=== PATIENT | male | born 1965 | race Caucasian/White ===

== ENCOUNTER → 2019-01-14 | Outpatient (CLI) | payer BC ==
[~2019-01-14] MED LIST: VICODIN 500 MG-1 TAB PO
[2019-01-14 07:28] LABS: BASO # 0.1 10*3/uL (0.0-0.1); BASO % 1.5 % (0.0-1.0); EOS # 0.2 10*3/uL (0.0-0.4); HEMATOCRIT 45.1 % (42.0-52.0); HEMOGLOBIN 14.8 g/dl (14.0-18.0); LYMPH # 1.9 10*3/uL (1.3-4.4); LYMPH % 34.1 % (27.0-41.0); MEAN CELL VOLUME 89.5 fl (80.0-94.0); MEAN CORPUSCULAR HGB 29.4 pg (27.0-31.0); MEAN CORPUSCULAR HGB CONC 32.8 g/dl (33.0-37.0); MEAN PLATELET VOLUME 10.3 fl (9.6-12.3); MONO # 0.5 10*3/uL (0.1-1.0); MONO % 9.8 % (3.0-9.0); NEUT # 2.8 10*3/uL (2.3-7.9); NEUT % 50.4 % (47.0-73.0); PLATELET COUNT AUTOMATED 298 10*3/uL (130-400); RED BLOOD COUNT 5.04 10*6/uL (4.50-5.90); RED CELL DISTRI WIDTH 13.2 % (0-14.5); WHITE BLOOD COUNT 5.5 10*3/uL (4.8-10.8)
[2019-01-14 07:57] LABS: ALBUMIN 3.6 gm/dl (3.1-4.5); BUN 13 mg/dl (7-24); CHLORIDE 103 mmol/L (98-107); CHOLESTEROL 250 mg/dL (<200); CREATININE 0.66 mg/dL (0.70-1.30); POTASSIUM 4.2 mmol/L (3.5-5.1); SGOT/AST 20 IU/L (3-35); SGPT/ALT 35 U/L (12-78); SODIUM 139 mmol/L (136-145); TRIGLYCERIDES 125 mg/dl (<150); VLDL CHOLESTEROL 25 mg/dL (6-40)
[2019-01-14 08:04] LABS: ALKALINE PHOSPHATASE 78 U/L (45-117); CPK 84 U/L (39-308); HDL CHOLESTEROL 44 mg/dl (40-60); LDL CHOLESTEROL 181 mg/dL (9-159); TOTAL PROTEIN 7.3 gm/dL (6.4-8.2)
[2019-01-14 08:14] LABS: VITAMIN D, 25-HYDROXY 24.1 ng/mL (30-100)
== END | disposition home or self-care (01) ==
LOC: LAB 06:49
PROVIDERS: Internal Medicine
DX: Z13.1 Encounter for screening for diabetes mellitus (principal); Z13.21 Encounter for screening for nutritional disorder; Z13.220 Encounter for screening for lipoid disorders; Z12.5 Encounter for screening for malignant neoplasm of prostate; D52.9 Folate deficiency anemia, unspecified; R74.8 Abnormal levels of other serum enzymes; R70.0 Elevated erythrocyte sedimentation rate; E11.9 Type 2 diabetes mellitus without complications; E55.9 Vitamin D deficiency, unspecified; I10 Essential (primary) hypertension

== ENCOUNTER 2020-02-16 15:58 | Observation (INO) | payer BC ==
[~2020-02-16] VITALS: Ht 182.9 cm; Wt 119.1 kg
[2020-02-16 16:11] VITALS: BP 150/80
[2020-02-16 16:33] LABS: BASO # 0.1 10*3/uL (0.0-0.1); BASO % 0.9 % (0.0-1.0); EOS # 0.2 10*3/uL (0.0-0.4); EOS % 2.8 % (1.0-4.0); HEMATOCRIT 44.4 % (42.0-52.0); LYMPH # 1.9 10*3/uL (1.3-4.4); LYMPH % 24.8 % (27.0-41.0); MEAN CELL VOLUME 87.9 fl (80.0-94.0); MEAN CORPUSCULAR HGB 28.7 pg (27.0-31.0); MEAN CORPUSCULAR HGB CONC 32.7 g/dl (33.0-37.0); MEAN PLATELET VOLUME 10.3 fl (9.6-12.3); MONO # 0.6 10*3/uL (0.1-1.0); MONO % 7.6 % (3.0-9.0); NEUT # 4.9 10*3/uL (2.3-7.9); NEUT % 63.6 % (47.0-73.0); PLATELET COUNT AUTOMATED 285 10*3/uL (130-400); RED BLOOD COUNT 5.05 10*6/uL (4.50-5.90); RED CELL DISTRI WIDTH 13.2 % (0-14.5); WHITE BLOOD COUNT 7.8 10*3/uL (4.8-10.8)
[2020-02-16 16:44] LABS: ACT PARTIAL THROMBO TIME 28.1 SECONDS (20.0-32.1)
[2020-02-16 16:49] LABS: ALBUMIN 3.7 gm/dl (3.1-4.5); ALKALINE PHOSPHATASE 86 U/L (45-117); BUN 13 mg/dl (7-24); CHLORIDE 104 mmol/L (98-107); CREATININE 0.66 mg/dL (0.70-1.30); POTASSIUM 3.6 mmol/L (3.5-5.1); SGOT/AST 24 IU/L (3-35); SGPT/ALT 41 U/L (12-78); SODIUM 138 mmol/L (136-145); TOTAL PROTEIN 7.5 gm/dL (6.4-8.2)
[2020-02-16 16:51] LABS: TROPONIN I < 0.015 ng/ml (<0.045)
[2020-02-16 19:20] VITALS: BP 133/71
--- NOTE | 2020-02-16 19:20 | NUR ---
CALLED FLOOR, NURSE IN REPORT. ASKED FILE SYSTEM INSTALLER FOR NURSE TO CALL ED WHEN READY FOR ADMISSION.
[2020-02-16 19:50] VITALS: BP 118/53
--- NOTE | 2020-02-16 20:02 | NUR ---
CALLED FLOOR TO SEE IF READY FOR ADMISSION. [employer] SPECIALIST TO TELL NURSE.
[2020-02-16 20:20] VITALS: BP 109/63
[2020-02-16 20:30] VITALS: BP 150/80
--- NOTE | 2020-02-16 20:30 | NUR ---
A 54, admitted to [facility], under the services of Dr. SABRINA SNIDER,IRENE Deluca with a diagnosis of chest pain. Chief complaint is C/O CHEST TIGHTNESS, SOB SINCE YESTERDAY RADIATES TO BACK AND SHOULDER BLADES, DIZZINESS. SAW TODAY AND WAS SENT HERE. HX OF PERICARDITIS. Patient arrived via stretcher from ER. Monitor applied. Initial assessment completed. Vital signs taken and recorded. DR. SABRINA SNIDER,IRENE Deluca notified of admission to the [facility] unit. Orders received. See assessment for past medical history, medications and allergies. Patient and/or family oriented to unit. [facility] visitation policy reviewed. Clothing/patient valuable form completed. SOHAN JARRETT
[2020-02-16 20:36] VITALS: BP 150/80
[2020-02-16] MEDS ORDERED: TENORMIN50 MG PO (20:41)
[2020-02-16] MEDS ORDERED: NEURONTIN100 MG PO (20:42)
[2020-02-16] MEDS ORDERED: ASPIRIN ADULT L81 M1 PO (20:42)
[2020-02-17] VITALS: BP 140/88
[2020-02-17 08:00] VITALS: BP 119/64
--- NOTE | 2020-02-17 08:40 | NUR ---
PT TO CARDIAC REHAB VIA WC
--- NOTE | 2020-02-17 09:00 | NUR ---
Fashion Marketer in to talk to patient. Patient states lives at home with his . There are 24 steps in the home. Physician: Dr. Chele Joshi Pharmacy: [facility] Home health services: none Patient's level of ADLs: INDEPENDENT Patient has working utilities: yes DME: none Follow-up physician's appointment after d/c: he prefers to make his own follow up appt after discharge Does patient want to access PORTAL?: no Discharge plan discussed with patient. He lives at home with his . He is independent in his ADLs and ambulation. Discussed home health care services and he denies any home needs. CM will continue to follow for any discharge planning needs. When medically stable he will be discharged to home. He states his will provide transportation on discharge. MARY ARCE
--- NOTE | 2020-02-17 09:40 | NUR ---
INFORMED CONSENT OBTAINED FOR LEXISCAN NUCLEAR STRESS TEST WITH DR. BENNETT. RESTING EKG NSR WITH A RESTING HR OF 67 WITH BP OF 128/68. LUNGS CLEAR WITH SPO2 OF 97% ON ROOM AIR. PT COMPLETED A 1:00 LEXISCAN PROTOCOL RECEIVING LEXISCAN 0.4 MG IV OVER 10 SECONDS. HAD NO CHEST PAIN OR ANY EKG CHANGES. HAD C/O FEELING "WARM AND STOMACH CRAMPING" THAT WAS RELIEVED IN RECOVERY. HAD A PEAK HR OF 99 WITH BP OF 140/70. LAST RECOVERY HR OF 87 WITH BP OF 136/74. AWAITING SCANNING IN STABLE CONDITION.
[2020-02-17 12:00] VITALS: BP 129/59
--- NOTE | 2020-02-17 13:30 | NUR ---
Received call from Dr. Joshi. Patient can be discharged to home. Dr. Joshi states that discharge has been completed, stress and echo are good. Nurse notified.
--- NOTE | 2020-02-17 14:30 | NUR ---
Informed patient his follow up doctor appt is Friday, 02/22 at 1045. Patient verbalized an understanding. he states he will drive himself home as he drove himself here.
--- NOTE | 2020-02-17 14:59 | NUR ---
Discharge instructions reviewed with patient/family. Patient receptive and verbalizes understanding. Follow-up care arranged. Written instructions given to patient/family. ENRIQUE ELLIS
== END 2020-02-17 17:20 | disposition home or self-care (01) ==
LOC: ED 15:58 → EDHOLD 18:50 → 4NE 18:50
PROVIDERS: Emergency Medicine; ADMIT Internal Medicine; ATTEND Internal Medicine
DX: R07.89 Other chest pain (principal); I10 Essential (primary) hypertension; G62.9 Polyneuropathy, unspecified; Z87.442 Personal history of urinary calculi; E66.01 Morbid (severe) obesity due to excess calories; Z68.36 Body mass index [BMI] 36.0-36.9, adult

== ENCOUNTER → 2020-11-15 | Outpatient (CLI) | payer BC ==
[~2020-11-15] MED LIST changes: +ASPIRIN ADULT L81 M1 PO; +NEURONTIN100 MG PO; +TENORMIN50 MG PO
[2020-11-15 07:49] LABS: BASO # 0.1 10*3/uL (0.0-0.1); BASO % 1.1 % (0.0-1.0); EOS # 0.3 10*3/uL (0.0-0.4); EOS % 4.7 % (1.0-4.0); HEMATOCRIT 45.9 % (42.0-52.0); LYMPH % 36.3 % (27.0-41.0); MEAN CORPUSCULAR HGB CONC 32.2 g/dl (33.0-37.0); MEAN PLATELET VOLUME 10.5 fl (9.6-12.3); MONO # 0.5 10*3/uL (0.1-1.0); MONO % 8.9 % (3.0-9.0); NEUT # 2.7 10*3/uL (2.3-7.9); NEUT % 48.6 % (47.0-73.0); PLATELET COUNT AUTOMATED 246 10*3/uL (130-400); RED CELL DISTRI WIDTH 13.4 % (0-14.5); WHITE BLOOD COUNT 5.5 10*3/uL (4.8-10.8)
[2020-11-15 08:21] LABS: ALBUMIN 3.6 gm/dl (3.1-4.5); BUN 12 mg/dl (7-24); CHLORIDE 106 mmol/L (98-107); CHOLESTEROL 139 mg/dL (<200); CREATININE 0.64 mg/dL (0.70-1.30); POTASSIUM 4.1 mmol/L (3.5-5.1); SGOT/AST 17 IU/L (3-35); SGPT/ALT 40 U/L (12-78); SODIUM 139 mmol/L (136-145); TOTAL PROTEIN 7.3 gm/dL (6.4-8.2); TRIGLYCERIDES 153 mg/dl (<150)
[2020-11-15 08:27] LABS: ALKALINE PHOSPHATASE 76 U/L (45-117); FREE T4 1.05 ng/dl (0.76-1.46); LDL CHOLESTEROL 64 mg/dL (9-159)
[2020-11-15 08:52] LABS: VITAMIN D, 25-HYDROXY 22.5 ng/mL (30-100)
== END | disposition home or self-care (01) ==
LOC: LAB 07:12
PROVIDERS: ATTEND Internal Medicine
DX: Z12.5 Encounter for screening for malignant neoplasm of prostate (principal); I10 Essential (primary) hypertension; E78.2 Mixed hyperlipidemia; E55.9 Vitamin D deficiency, unspecified; Z00.01 Encounter for general adult medical examination with abnormal findings

== ENCOUNTER → 2023-05-17 | Outpatient (CLI) | payer BC | END | disposition home or self-care (01) | LOC: US 08:06 | PROVIDERS: ATTEND Family Medicine | DX: I73.9 Peripheral vascular disease, unspecified (principal) ==

== ENCOUNTER → 2023-06-07 | Outpatient (CLI) | payer BC | END | disposition home or self-care (01) | LOC: RAD 10:05 | PROVIDERS: ATTEND Family Medicine | DX: R20.0 Anesthesia of skin (principal) ==